=== PATIENT | male | born 1995 ===

== ENCOUNTER 2020-10-12 22:32 | Outpatient (REF) | payer MEDICAID, SELFPAY ==
[2020-10-12 19:53] LABS: Abs Immature Grans 0.01 10^3/uL (0.0-0.06); Absolute Basophil Count 0.03 10^3/uL (0.0-0.2); Absolute Eosinophil Count 0.03 10^3/uL (0.0-0.7); Absolute Lymphocyte Count 2.89 10^3/uL (1.2-3.4); Absolute Monocyte Count 0.51 10^3/uL (0.1-0.8); Absolute Neutrophil Count 3.71 10^3/uL (1.2-6.7); Basophils % 0.4; Eosinophils % 0.4; HCT 49.1 % (40.0-50.0); HGB 17.1 g/dL (13.5-17.5); Immature Grans % 0.1; Lymphocytes % 40.3; MCH 29.9 pg (27.0-33.0); MCHC 34.8 % (32.0-36.0); MPV 9.4 fL (8.0-11.0); Monocytes % 7.1; Neutrophils % 51.7; Nucleated RBC 0 %; Platelet Count 397 10^3/uL (130-400); RBC 5.71 10^6/uL (4.36-5.78); RDW 12.4 % (11.8-14.1); RDW-SD 38.7 fL; WBC 7.18 10^3/uL (4.4-10.8)
[2020-10-12 20:13] LABS: ALT 56 U/L (16-63); AST 29 U/L (15-37); Albumin 4.6 g/dL (3.4-5.0); Alkaline Phosphatase 90 U/L (46-116); Anion Gap 10.2 mmol/L (3-11); BUN 14 mg/dL (7-18); Bilirubin, Total 0.5 mg/dL (0.2-1.0); CO2 27.8 mmol/L (21.0-32.0); Calcium 9.8 mg/dL (8.5-10.1); Calculated LDL 127 mg/dL (<100); Chloride 103 mmol/L (98-107); Cholesterol 199 mg/dL (<200); Glucose 88 mg/dL (74-106); HDL Cholesterol 50 mg/dL (40-60); Potassium 4.1 mmol/L (3.5-5.1); Sodium 141 mmol/L (136-145); Total Protein 8.2 g/dL (6.4-8.2); Triglyceride 111 mg/dL (<150)
[2020-10-12 20:35] LABS: Lipase 99 U/L (73-393)
== END 2020-10-12 22:33 | disposition home or self-care (01) ==
LOC: NCHCN 22:32
PROVIDERS: PCP Nurse Practitioner Family; Visit Provider Nurse Practitioner Family
DX: R10.11 Right upper quadrant pain (principal); Z00.00 Encounter for general adult medical examination without abnormal findings
CPT/HCPCS: 80053; 80061; 83690; 85025

== ENCOUNTER 2020-12-04 13:48 | Outpatient (REF) | payer MEDICAID, SELFPAY ==
[2020-12-05 15:07] LABS: Chlamydia Result Negative (Negative); GC Result Negative (Negative)
== END 2020-12-04 13:49 | disposition home or self-care (01) ==
LOC: NCHCN 13:48
PROVIDERS: PCP Nurse Practitioner Family; Visit Provider Nurse Practitioner Community Health
DX: R10.11 Right upper quadrant pain (principal); Z11.3 Encounter for screening for infections with a predominantly sexual mode of transmission
CPT/HCPCS: 87491; 87591

== ENCOUNTER 2021-06-06 16:46 | Outpatient (REF) | payer MEDICAID, SELFPAY ==
[2021-06-06 21:59] LABS: Bacteria Rare HPF (Negative); C & S Indicated? C&S Done As Ordered; Casts Negative LPF (Negative); Crystals Many Amorphous HPF (Negative); Epithelial Cells Rare HPF (Negative); Mucus Negative (Negative); RBC Negative HPF (0-2); WBC Negative HPF (0-5)
[2021-06-06 22:01] LABS: HCT 45.8 % (40.0-50.0); HGB 15.8 g/dL (13.5-17.5); MCH 29.6 pg (27.0-33.0); MCHC 34.5 % (32.0-36.0); MCV 85.9 fL (80-95); MPV 9.2 fL (8.0-11.0); Platelet Count 422 10^3/uL (130-400); RBC 5.33 10^6/uL (4.36-5.78); RDW 12.5 % (11.8-14.1); WBC 8.92 10^3/uL (4.4-10.8)
[2021-06-06 22:05] LABS: Anion Gap 10.3 mmol/L (3-11); BUN 14 mg/dL (7-18); CO2 28.7 mmol/L (21.0-32.0); CREATININE 1.3 mg/dL (0.70-1.30); Calcium 9.6 mg/dL (8.5-10.1); Chloride 104 mmol/L (98-107); Creatine Kinase 625 U/L (39-308); Glucose 94 mg/dL (74-106); Potassium 3.6 mmol/L (3.5-5.1); Sodium 143 mmol/L (136-145)
== END 2021-06-06 16:47 | disposition home or self-care (01) ==
LOC: NCHCN 16:46
PROVIDERS: PCP Nurse Practitioner Family; Visit Provider Nurse Practitioner Community Health
DX: R30.0 Dysuria (principal)
CPT/HCPCS: 80048; 82550; 85027; 81015; 87086

== ENCOUNTER 2021-07-10 17:00 | Outpatient (REF) | payer MEDICAID, SELFPAY ==
[2021-07-13 14:51] LABS: Chlamydia Result Negative (Negative); GC Result Negative (Negative)
== END 2021-07-10 17:01 | disposition home or self-care (01) ==
LOC: NCHCN 17:00
PROVIDERS: PCP Nurse Practitioner Family; Visit Provider Nurse Practitioner Family
DX: Z11.3 Encounter for screening for infections with a predominantly sexual mode of transmission (principal)
CPT/HCPCS: 87491; 87591